=== PATIENT | female | born 1960 | race Hispanic/Latino ===

== ENCOUNTER 2018-07-10 01:59 | Emergency (ER) | payer OTHER ==
[2018-07-10] MEDS ORDERED: Acetaminophen/Codeine 30-300mg Tablet ONE (02:30)
[2018-07-10 02:31] LABS: #Eosinphils 0.1 thou/uL (0.0-0.7); #Lymphocytes 2.5 thou/uL (1.20-3.40); #Monocytes 0.6 thou/uL (0.11-0.59); #Neutrophils 9.4 thou/uL (1.40-6.50); %Eosinophils 1.2 % (0.0-10.0); %Lymphocytes 19.6 % (21.0-51.0); %Monocytes 4.4 % (0.0-10.0); %Neutrophils 74.9 % (42.0-75.0); Hemoglobin 13.9 g/dL (12.0-16.0); Mean Corpuscular Volume 93.8 fL (78.0-98.0); Mean Platelet Volume 7.7 fL (7.4-10.4); Platelet Count 283 thou/uL (130-400); RBC Distribution Width 11.6 % (11.5-14.5); Red Blood Cell (RBC) Count 4.62 mill/uL (4.20-5.40); White Blood Cell (WBC) Count 12.5 thou/uL (4.8-10.8)
[2018-07-10 02:55] LABS: ALT (SGPT) 15 U/L (8-55); AST (SGOT) 26 U/L (5-34); Albumin 4.8 g/dL (3.5-5.0); Alkaline Phosphatase 96 U/L (40-150); Anion Gap 19 mmol/L (10-20); BUN (Urea Nitrogen) 25 mg/dL (9.8-20.1); Bilirubin, Total 0.3 mg/dL (0.2-1.2); CK (CPK) 76 U/L (29-168); Calc. Creatinine Clearance 0 mL/min (70-130); Calcium 10.8 mg/dL (7.8-10.44); Carbon Dioxide 18 mmol/L (22-29); Chloride 105 mmol/L (98-107); Estimated GFR-MDRD 74; Globulin 4.4 g/dL (2.4-3.5); Glucose 149 mg/dL (70-105); Lipase 25 U/L (8-78); Potassium 4.4 mmol/L (3.5-5.1); Protein, Total 9.2 g/dL (6.0-8.3); Sodium 138 mmol/L (136-145)
--- NOTE | 2018-07-10 07:29 | CT ---
PRELIMINARY REPORT/[facility]/EMERGENCY AFTER HOURS PROCEDURE: Addendum created by Harley Hager MD on 07/10/2018 3:31 AM Central Time ([place] & [place]) Partial opacification of the left mastoid air cells. No perceptible mastoid fracture. No osseous erosion, overlying inflammation, or subperiosteal abscess to indicate mastoiditis. Initial Report created on 07/10/2018 3:27 AM Central Time ([place] & [place]) EXAM: CT Head Without Contrast EXAM DATE/TIME: 07/10/2018 3:11 AM CLINICAL HISTORY: 57 years old, female; Injury or trauma; Initial encounter; Abrasion; Not specified; Patient HX: Er 8. Fall; Abdominal pain x1 week; Denies vomiting; Denies nausea or urinary complaints. PT is poor historian TECHNIQUE: Imaging protocol: Axial computed tomography images of the head without contrast. COMPARISON: No relevant prior studies available. 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 Old lacunar infarction(s). Small focus of left occipital encephalomalacia/gliosis. No brain edema. No intracranial hemorrhage. Ventricles: Normal. No ventriculomegaly. Bones/joints: Unremarkable. No acute fracture. Sinuses: Visualized sinuses are unremarkable. No fluid levels. Mastoid air cells: Visualized mastoid air cells are well aerated. No mastoid effusion. Soft tissues: Unremarkable. IMPRESSION: 1. There are numerous small round parenchymal calcifications without associated edema which may represent chronic sequelae of neurocysticercosis. 2. Small focus of left occipital encephalomalacia/gliosis. 3. No acute brain findings. Thank you for allowing us to participate in the care of your patient. Dictated and Authenticated by: Harley Hager MD 07/10/2018 3:27 AM Central Time ([place] & [place]) Final report by Dr. Duenas Emergency after-hours study CT BRAIN NONCONTRAST: DATE: 07/10/2018 HISTORY: 57-year-old female status post acute head trauma FINDINGS: There is no evidence of acute intra-axial or extra-axial hemorrhage. There is no midline shift or any other mass effect. There is no extra-axial fluid collection. There is no evidence of obstructive hydrocephalus. Calvarium is intact. There are numerous tiny focal calcifications scattered in the lor ateral cerebral hemispheres. There is a small focus of left occipital encephalomalacia and gliosis. There is another focus of encephalomalacia and gliosis at the left basal ganglia and left caudate ilda mcnair. Agree with preliminary report by [facility]. IMPRESSION: 1. No acute intracranial findings. 2. Evidence of chronic sequelae of neurocysticercosis. 3. 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 Transcribed Date/Time: 07/10/2018 7:40 AM
--- NOTE | 2018-07-10 07:50 | CT ---
PRELIMINARY REPORT/[facility]/EMERGENCY AFTER HOURS PROCEDURE: EXAM: CT Cervical Spine Without Contrast EXAM DATE/TIME: 07/10/2018 3:10 AM CLINICAL HISTORY: 57 years old, female; Injury or trauma; Initial encounter; Abrasion; Patient HX: Er 8. Fall; Abdomina l pain x1 week; Denies vomiting; Denies nausea or urinary complaints. PT is poor historian TECHNIQUE: Imaging protocol: Axial computed tomography images of the cervical spine without contrast. Coronal and sagittal reformatted images were created and reviewed. COMPARISON: No relevant prior studies available. FINDINGS: Vertebrae: No acute fracture. Normal alignment. Discs/Spinal canal/Neural foramina: No spinal stenosis. No neural foraminal narrowing. Soft tissues: Unremarkable. Lungs: Lung apices are normal. IMPRESSION: No acute findings. Thank you for allowing us to participate in the care of your patient. Dictated and Authenticated by: Harley Hager MD 07/10/2018 3:30 AM Central Time ([place] & [place]) Final report by Dr. Duenas Emergency after-hours study CT CERVICAL SPINE NONCONTRAST: DATE: 07/10/2018 HISTORY: cervical trauma FINDINGS: There are no jumped or perched facets. There is no evidence of acute fracture. The vertebral body hei ghts are maintained. There is no prevertebral soft tissue swelling. Agree with preliminary report by [facility]. IMPRESSION: No evidence of acute fracture or acute traumatic subluxation. Transcribed Date/Time: 07/10/2018 8:08 AM
--- NOTE | 2018-07-10 08:06 | CT ---
PRELIMINARY REPORT/[facility]/EMERGENCY AFTER HOURS PROCEDURE: EXAM: CT Chest With Contrast EXAM DATE/TIME: 07/10/2018 3:16 AM CLINICAL HISTORY: 57 years old, female; Injury or trauma; Initial encounter; Abrasion; Patient HX: Er 8. Fall; Abdomina l pain x1 week; Denies vomiting; Denies nausea or urinary complaints. PT is poor historian TECHNIQUE: Imaging protocol: Axial computed tomography images of the chest with intravenous contrast. Coronal and sagittal reformatted images were created and reviewed. COMPARISON: No relevant prior studies available. FINDINGS: Lungs: No pulmonary contusion. Pleural space: No pneumothorax or hemothorax. Trace bilateral pleural effusions. Heart: Normal. No cardiomegaly. No pericardial effusion. Aorta: No traumatic aortic injury. No mediastinal hematoma, pneumomediastinum, or hemopericardium. Lymph nodes: Unremarkable. No enlarged lymph nodes. Bones/joints: Acute fractures of the anterolateral right fifth, sixth, and seventh ribs. Acute fractu res of the lateral left seventh and possibly eighth ribs. Soft tissues: Unremarkable. IMPRESSION: 1. Acute fractures of the anterolateral right fifth, sixth, and seventh ribs. 2. Acute fractures of the lateral left seventh and possibly eighth ribs. 3. Trace bilateral pleural effusions. EXAM: CT Abdomen and Pelvis With Contrast EXAM DATE/TIME: 07/10/2018 3:16 AM CLINICAL HISTORY: 57 years old, female; Injury or trauma; Initial encounter; Abrasion; Patient HX: Er 8. Fall; Abdomina l pain x1 week; Denies vomiting; Denies nausea or urinary complaints. PT is poor historian TECHNIQUE: Imaging protocol: Axial computed tomography images of the abdomen and pelvis with intravenous contrast. Coronal and sagittal reformatted images were created and reviewed. COMPARISON: No relevant prior studies available. FINDINGS: ABDOMEN: Liver: Normal. No mass. Gallbladder and bile ducts: Normal. No calcified stones. No ductal dilation. Pancreas: Normal. No ductal dilation. Spleen: Normal. No splenomegaly. Adrenals: Normal. No mass. Kidneys and ureters: Nonobstructive nephrolithiasis right kidney. Multiple small low attenuation lesions in the left kidney cannot be strict CT criteria for cysts and are indeterminate, potentially hyperdense cysts. Kidneys otherwise unremarkable. Stomach and bowel: No bowel wall thickening or intestinal obstruction. Appendix: Normal appendix. PELVIS: Bladder: Unremarkable as visualized. Reproductive: Prior hysterectomy. ABDOMEN and PELVIS: Intraperitoneal space: No hemoperitoneum, pneumoperitoneum, mesenteric/omental contusion, or retroperitoneal hematoma. Bones/joints: Acute fracture of the sacrum at the S4 level. Soft tissues: Unremarkable. Vasculature: Normal. No abdominal aortic aneurysm. Lymph nodes: Normal. No enlarged lymph nodes. Other findings: No traumatic organ injury. IMPRESSION: Acute fracture of the sacrum at the S4 level. Thank you for allowing us to participate in the care of your patient. Dictated and Authenticated by: Harley Hager MD 07/10/2018 3:38 AM Central Time ([place] & [place]) Final report by Dr. Duenas Emergency after-hours study CT THORAX WITH CONTRAST CT ABDOMEN WITH CONTRAST CT PELVIS WITH CONTRAST CT THORACIC SPINE WITH CONTRAST CT LUMBAR SPINE WITH CONTRAST: (Trauma protocol) DATE: 07/10/2018 HISTORY: Trauma to the chest, abdomen, and pelvis TECHNIQUE: IV administration of iodinated contrast media. No oral contrast media. Single phase scans of thorax, abdomen, and pelvis. Sagittal reconstructions of thoracic and lumbar spine. FINDINGS: Thoracic and lumbar spine: No acute compression fracture Thorax: Acute, minimally displaced fracture of posterior lateral left seventh rib. Multiple slightly angulated fractures of right anterior ribs, of indeterminate age. Small bilateral pleural effusions. Abdomen: No evidence of traumatic findings Pelvis: Mildly displaced fracture of lower sacrum, probably acute. IMPRESSION: 1. Mildly displaced and mildly comminuted lower sacral fracture, probably acute. 2. Acute, traumatic minimally displaced left seventh rib fracture. 3. Several right anterior rib fractures of indeterminate age. 4. Small bilateral pleural effusions. 5. Agree with preliminary report by [facility] Transcribed Date/Time: 07/10/2018 8:12 AM
[2018-07-10] MEDS ORDERED: ISOVUE-370 76%-LOCM 1 ML ONE (10:39)
== END 2018-07-10 06:31 | disposition home or self-care (01) ==
LOC: ERS 01:59
DX: S22.41XA Multiple fractures of ribs, right side, initial encounter for closed fracture (principal); S32.10XA Unspecified fracture of sacrum, initial encounter for closed fracture; I10 Essential (primary) hypertension; E11.9 Type 2 diabetes mellitus without complications; E78.00 Pure hypercholesterolemia, unspecified; Z86.73 Personal history of transient ischemic attack (TIA), and cerebral infarction without residual deficits; Z79.84 Long term (current) use of oral hypoglycemic drugs; Z79.899 Other long term (current) drug therapy; W19.XXXA Unspecified fall, initial encounter
CPT/HCPCS: 70450; 71260; 72125; 74177; 80053; 82550; 83690; 84484; 85025; 93005; Q9966